=== PATIENT | male | born 1965 | race Two or more races ===

== ENCOUNTER 2021-01-19 23:08 | Emergency (ER) | payer OTHER ==
[~2021-01-19] VITALS: Ht 165.1 cm; Wt 104.3 kg
[2021-01-19 23:08] VITALS: BP 130/96
--- NOTE | 2021-01-20 01:01 | NUR ---
Patient discharged to home in stable condition. Written and verbal after care instructions given. Patient verbalizes understanding of instruction.
--- NOTE | 2021-01-20 01:02 | NUR ---
PATIENT NOW IN [employer].
== END 2021-01-20 01:07 ==
LOC: ER 23:11
DX: Z02.89 Encounter for other administrative examinations (principal); Z20.822 Contact with and (suspected) exposure to COVID-19; I10 Essential (primary) hypertension; E11.9 Type 2 diabetes mellitus without complications; Z88.2 Allergy status to sulfonamides
CPT/HCPCS: 87426; 99283; C9803